=== PATIENT | male | born 1955 | race Caucasian/White ===

== ENCOUNTER 2017-06-18 08:57 | Emergency (ER) | payer BC, OTHER ==
[2017-06-18 09:06] VITALS: BP 141/70
--- NOTE | 2017-06-18 09:16 | ER Document Report ---
HPI - HPI Pain Level: 4 - DERM Skin Color: Normal, [place] Past Medical History - Social History Family History: Reviewed & Not Pertinent Patient has suicidal ideation: No Patient has homicidal ideation: No Renal/ Medical History: Reports: Hx Kidney Stones. Denies: Hx Peritoneal Dialysis Past Surgical History: Reports: Hx Orthopedic Surgery - pins in feet - Immunizations Hx Diphtheria, Pertussis, Tetanus Vaccination: Yes Vertical Provider Document - INFECTION CONTROL TRAVEL OUTSIDE OF THE [place] IN LAST 30 DAYS: No - RESPIRATORY O2 Sat by Pulse Oximetry: 98 Course - Vital Signs Vital signs: Temp Pulse Resp BP Pulse Ox 97.6 F 69 18 141/70 H 98 06/18/17 09:02 06/18/17 09:02 06/18/17 09:02 06/18/17 09:02 06/18/17 09:02
--- NOTE | 2017-06-18 09:43 | ER Document Report ---
ED Skin Rash/Insect Bite/Abscs - General Chief Complaint: Boil Stated Complaint: RASH Time Seen by Provider: 06/18/17 09:16 Mode of Arrival: Ambulatory Information source: Patient Notes: Patient is a 61-year-old male who presents to the ER today for cysts of her both of his armpits 1 week. Patient states he has no history of this. He denies any history of MRSA. He denies any drainage, fever, chills. He states that they do not hurt but they burn. He admits to rash under the right armpit with the cysts. He denies itching. TRAVEL OUTSIDE OF THE [place] IN LAST 30 DAYS: No - Related Data Allergies/Adverse Reactions: No Known Allergies Allergy (Verified 06/18/17 09:06) Past Medical History - General Information source: Patient - Social History Smoking Status: Never Smoker Family History: Reviewed & Not Pertinent Patient has suicidal ideation: No Patient has homicidal ideation: No Renal/ Medical History: Reports: Hx Kidney Stones. Denies: Hx Peritoneal Dialysis Past Surgical History: Reports: Hx Orthopedic Surgery - pins in feet - Immunizations Hx Diphtheria, Pertussis, Tetanus Vaccination: Yes Review of Systems - Review of Systems Constitutional: No symptoms reported EENT: No symptoms reported Cardiovascular: No symptoms reported Respiratory: No symptoms reported Gastrointestinal: No symptoms reported Genitourinary: No symptoms reported Male Genitourinary: No symptoms reported Musculoskeletal: No symptoms reported Skin: See HPI Hematologic/Lymphatic: No symptoms reported Neurological/Psychological: No symptoms reported Physical Exam - Vital signs Vitals: Temp Pulse Resp BP Pulse Ox 97.6 F 69 18 141/70 H 98 06/18/17 09:02 06/18/17 09:02 06/18/17 09:02 06/18/17 09:02 06/18/17 09:02 - Notes Notes: PHYSICAL EXAMINATION: GENERAL: Well-appearing and in no acute distress. HEAD: Atraumatic, normocephalic. EYES: Pupils equal round and reactive to light, extraocular movements intact, sclera anicteric, conjunctiva are normal. ENT: ear canals without erythema or foreign body, TMs pearly cali with good bony landmarks, nares patent, oropharynx clear without exudates. Moist mucous membranes. NECK: Normal range of motion, supple without lymphadenopathy LUNGS: CTAB and equal. No wheezes rales or rhonchi. HEART: Regular rate and rhythm without murmurs EXTREMITIES: Normal range of motion, no pitting edema. No cyanosis. NEUROLOGICAL: Cranial nerves grossly intact. Normal sensory/motor exams. PSYCH: Normal mood, normal affect. SKIN: Warm, Dry, normal turgor, three small areas of erythema with erythematous rash with central clearing to right axilla, one small area of erythema to left axilla without rash surrounding Course - Vital Signs Vital signs: Temp Pulse Resp BP Pulse Ox 97.6 F 69 18 141/70 H 98 06/18/17 09:02 06/18/17 09:02 06/18/17 09:02 06/18/17 09:02 06/18/17 09:02 Discharge - Discharge Clinical Impression: Rash and nonspecific skin eruption Condition: Stable Disposition: HOME, SELF-CARE Additional Instructions: Return immediately for any new or worsening symptoms. Follow up with primary care provider, call tomorrow to make followup appointment. Prescriptions: Clotrimazole/Betamethasone Dip [Clotrimazole-Betamethasone Crm] 45 gm TP BID #1 cream..g. Doxycycline Hyclate 100 mg PO BID #20 capsule Forms: Return to Work Referrals: ROSA M VINES PA-C [Primary Care Provider] - Follow up as needed
[2017-06-18] MEDS ORDERED: LIDOCAINE 2% JELLY 5 ML TUBE TOP ONE (09:45)
== END 2017-06-18 09:52 | disposition home or self-care (01) ==
LOC: ER 08:57
DX: R21 Rash and other nonspecific skin eruption (principal)
CPT/HCPCS: 99282

== ENCOUNTER 2017-12-20 06:03 | Emergency (ER) | payer OTHER, BC ==
--- NOTE | 2017-12-20 06:54 | ER Document Report ---
ED General - General Chief Complaint: Back Pain Stated Complaint: BACK PAIN Time Seen by Provider: 12/20/17 06:33 Mode of Arrival: Ambulatory Information source: Patient Notes: 62-year-old male with no reported past medical history presents with complaint of flank, back and abdominal pain. Patient states he is experienced intermittent flank and abdominal pain for 2 months with worsening of pain over the last few days. He describes it as a stabbing, throbbing, constant pain with radiation down both legs. Patient denies any fever, chills, chest pain, shortness of breath, nausea, vomiting, injury to his back. He states he has been able to eat and drink normally. His last bowel movement was yesterday. He denies any current medication use but does have a 20 year pack history. Patient denies any abdominal surgeries. He is not currently under care of a primary care physician. Patient states the pain becomes so severe that he cannot walk. Patient has a very physical job working construction. TRAVEL OUTSIDE OF THE [place] IN LAST 30 DAYS: No - HPI Onset: Other - 2 months prior to arrival Onset/Duration: Gradual, Persistent, Worse Quality of pain: Sharp, Stabbing, Throbbing Severity: Moderate Associated symptoms: denies: Chest pain, Nonproductive cough, Headache, Nausea, Vomiting Exacerbated by: Standing, Movement, Walking Relieved by: Denies Similar symptoms previously: No Recently seen / treated by doctor: No - Related Data Allergies/Adverse Reactions: No Known Allergies Allergy (Verified 06/18/17 09:06) Past Medical History - General Information source: Patient - Social History Smoking Status: Former Smoker - [id number] smoking history Cigarette use (# per day): No Chew tobacco use (# tins/day): No Smoking Education Provided: No Frequency of alcohol use: None Drug Abuse: None Lives with: Spouse/Significant other Family History: Reviewed & Not Pertinent Patient has suicidal ideation: No Patient has homicidal ideation: No - Medical History Medical History: Negative Renal/ Medical History: Reports: Hx Kidney Stones. Denies: Hx Peritoneal Dialysis Past Surgical History: Reports: Hx Orthopedic Surgery - pins in feet - Immunizations Hx Diphtheria, Pertussis, Tetanus Vaccination: Yes Review of Systems - Review of Systems Notes: Patient denies any fever, chills, chest pain, shortness of breath, nausea, vomiting, dysuria, hematuria, injury to his back. Constitutional: Weakness EENT: denies: Blurred vision Cardiovascular: denies: Chest pain, Palpitations Respiratory: denies: Short of breath Gastrointestinal: Abdominal pain. denies: Diarrhea, Nausea, Vomiting Genitourinary: Flank pain, Retention Musculoskeletal: Back pain Skin: No symptoms reported Hematologic/Lymphatic: No symptoms reported Neurological/Psychological: Weakness Physical Exam - Vital signs Vitals: Temp Pulse Resp BP Pulse Ox 97.9 F 66 20 130/82 H 97 12/20/17 06:08 12/20/17 06:08 12/20/17 06:08 12/20/17 06:08 12/20/17 06:08 Interpretation: Normal. No: Tachycardic, Febrile - General General appearance: Appears well, Alert In distress: Mild - HEENT Head: Normocephalic, Atraumatic Eyes: Normal Extraocular movements intact: Yes Pupils: PERRL Mucous membranes: Normal Pharynx: Normal Neck: No: Carotid bruit - Respiratory Respiratory status: No respiratory distress Chest status: Nontender Breath sounds: Normal, Decreased air movement. No: Wheezing Chest palpation: Normal - Cardiovascular Rhythm: Regular Heart sounds: Normal auscultation Murmur: No Pulses: Normal: Radial, Dorsalis pedis Normal capillary refill: Yes - Abdominal Inspection: Normal Distension: No distension Bowel sounds: Normal Tenderness: Tender. No: Guarding, Rebound - Diffuse tenderness Organomegaly: No organomegaly - Back Back: Normal, Nontender, CVA tenderness, Vertebra tenderness - Extremities General upper extremity: Normal inspection, Nontender, Normal color, Normal ROM , Normal temperature General lower extremity: Normal inspection, Nontender, Normal color, Normal ROM , Normal temperature, Normal weight bearing. No: Shlomo's sign - Neurological Neuro grossly intact: Yes Cognition: Normal Orientation: AAOx4 Flynn Coma Scale Eye Opening: Spontaneous [place] Coma Scale Verbal: Oriented [place] Coma Scale Motor: Obeys Commands Flynn Coma Scale Total: 15 Speech: Normal Motor strength normal: LUE, RUE, LLE, RLE Additional motor exam normals: Equal disease education specialist, Dorsiflexion. No: Weakness Babinski reflex: Normal (flexor plantar) Sensory: Normal Knee - Reflex grade: 2 = Normal Ankle - Reflex grade: 2 = Normal - Psychological Associated symptoms: Normal affect, Normal mood Course - Re-evaluation Re-evalutation: Laboratory 12/20/17 12/20/17 12/20/17 07:34 07:34 07:34 WBC 5.9 RBC 4.73 Hgb 14.2 Hct 42.0 MCV 89 MCH 30.0 MCHC 33.8 RDW 13.6 Plt Count 266 Seg Neutrophils % 61.4 Lymphocytes % 24.8 Monocytes % 7.4 Eosinophils % 5.8 Basophils % 0.6 Absolute Neutrophils 3.6 Absolute Lymphocytes 1.5 Absolute Monocytes 0.4 Absolute Eosinophils 0.3 Absolute Basophils 0.0 Sodium 139.2 Potassium 4.7 Chloride 105 Carbon Dioxide 25 Anion Gap 9 BUN 18 Creatinine 0.77 Est GFR ( Amer) > 60 Est GFR (Non-Af Amer) > 60 Glucose 101 Calcium 9.0 Total Bilirubin 0.3 Direct Bilirubin 0.2 Neonat Total Bilirubin Not Reportable Neonat Direct Bilirubin Not Reportable Neonat Indirect Bili Not Reportable AST 19 ALT 15 L Alkaline Phosphatase 47 Creatine Kinase 71 CK-MB (CK-2) 0.81 Troponin I < 0.012 Total Protein 6.3 Albumin 3.8 Lipase 94.2 Aorta w/Runoff CTA 12/20/17 06:45 IMPRESSION: NO ABDOMINAL AORTIC ANEURYSM, DISSECTION OR SIGNIFICANT STENOSIS IN THE AORTA, ILIAC ARTERIES, OR LOWER EXTREMITY VESSELS. NO SIGNIFICANT FINDINGS IN THE ABDOMEN, PELVIS, OR LOWER EXTREMITIES. Chest X-Ray 12/20/17 06:47 IMPRESSION: NO SIGNIFICANT RADIOGRAPHIC FINDING IN THE CHEST. 12/20/17 06:56 62-year-old male with no reported past medical history presents with complaint of flank, back and abdominal pain. Patient states she is experienced intermittent flank and abdominal pain for 2 months with worsening of pain over the last few days. He describes it as a constant pain with radiation down both legs. He describes it as stabbing, throbbing. Upon arrival vital signs stable. Exam is significant for bilateral CVA tenderness, diffuse mild abdominal tenderness without guarding or rebound. Patient is able to ambulate without difficulty. He is able to go up on his toes and up on his heels. He has a normal neurologic exam. Because of the patient's smoking history, complaint of flank and abdominal pain a CTA of the abdomen was obtained and was within normal limits. CBC is without leukocytosis or anemia, BMP is without electrolyte abnormalities patient has normal cardiac enzymes. Findings were discussed with the patient. 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 He was prescribed Mobic and Flexeril for home. 12/20/17 15:38 - Vital Signs Vital signs: Temp Pulse Resp BP Pulse Ox 97.3 F 56 L 20 132/79 H 100 12/20/17 10:56 12/20/17 10:56 12/20/17 06:08 12/20/17 10:56 12/20/17 10:56 - Laboratory Result Diagrams: 12/20/17 07:34 12/20/17 07:34 Laboratory results interpreted by me: 12/20/17 07:34 ALT 15 L Discharge - Discharge Clinical Impression: Back pain of lumbar region with sciatica Condition: Good Disposition: HOME, SELF-CARE Instructions: Ice Packs ([facility]), Low Back Pain ([facility]), Muscle Strain ([facility]), Oral Narcotic Medication ([facility]), Pain Medication Injection ([facility]), Warm Packs ([facility]) Additional Instructions: Your CAT scan today did not show any abnormalities. You do not have an aneurysm of your aorta. You do not have any blockage of your major arteries. You do not have any kidney stones or any other abnormalities in your abdomen and pelvis. Prescriptions: Cyclobenzaprine HCl [Flexeril 10 mg Tablet] 10 mg PO TIDP PRN #15 tab PRN Reason: Meloxicam [Mobic] 15 mg PO DAILY 21 Days #21 tablet Forms: Return to Work Referrals: PATRICIA CALVERT MD [Primary Care Provider] - Follow up as needed
[2017-12-20 07:56] LABS: ABSOLUTE EOSINOPHILS # (AUTO) 0.3 10^3/uL (0.0-0.6); ABSOLUTE LYMPHOCYTES (AUTO) 1.5 10^3/uL (0.5-4.7); ABSOLUTE MONOCYTES (AUTO) 0.4 10^3/uL (0.1-1.4); ABSOLUTE NEUT (AUTO) 3.6 10^3/uL (1.7-8.2); BASOPHILS % (AUTO) 0.6 % (0-2); EOSINOPHILS % (AUTO) 5.8 % (0-6); HEMOGLOBIN 14.2 g/dL (13.5-17.0); LYMPHOCYTES % (AUTO) 24.8 % (13-45); MEAN CORPUSCULAR HGB CONC 33.8 g/dL (32.0-36.0); MEAN CORPUSCULAR VOLUME 89 fl (80-97); MONOCYTES % (AUTO) 7.4 % (3-13); PLATELET COUNT 266 10^3/uL (150-450); RED BLOOD COUNT 4.73 10^6/uL (4.35-5.55); RED CELL DISTRIBUTION WIDTH 13.6 % (11.5-14.0); SEGMENTED NEUTROPHILS % (AUTO) 61.4 % (42-78); TOTAL CELLS COUNTED % (AUTO) 100 %; WHITE BLOOD COUNT 5.9 10^3/uL (4.0-10.5)
--- NOTE | 2017-12-20 08:15 | RADIOLOGY REPORT (SQ) ---
EXAM DESCRIPTION: CHEST PA/LAT COMPLETED DATE/TIME: 12/20/2017 7:47 am REASON FOR STUDY: pain COMPARISON: Chest film 08/14/2011 EXAM PARAMETERS: NUMBER OF VIEWS: two views TECHNIQUE: Digital Frontal and Lateral radiographic views of the chest acquired. RADIATION DOSE: NA LIMITATIONS: none FINDINGS: LUNGS AND PLEURA: No opacities, masses or pneumothorax. No pleural effusion. MEDIASTINUM AND HILAR STRUCTURES: No masses or contour abnormalities. HEART AND VASCULAR STRUCTURES: Heart normal size. No evidence for failure. BONES: No acute findings. HARDWARE: None in the chest. OTHER: No other significant finding. IMPRESSION: NO SIGNIFICANT RADIOGRAPHIC FINDING IN THE CHEST. TECHNICAL DOCUMENTATION: JOB ID: [id number] [employer]- All Rights Reserved Reading location - IP/workstation name: [email or web address]
[2017-12-20 08:23] LABS: CREATINE KINASE MB 0.81 ng/mL (<4.55)
[2017-12-20 08:24] LABS: TROPONIN I < 0.012 ng/mL
[2017-12-20 08:49] LABS: ALANINE AMINOTRANSFERASE 15 U/L (21-72); ALBUMIN 3.8 g/dL (3.5-5.0); ALKALINE PHOSPHATASE 47 U/L (38-126); ANION GAP 9 (5-19); ASPARTATE AMINO TRANSFERASE 19 U/L (17-59); BILIRUBIN,DIRECT 0.2 mg/dL (0.0-0.4); BILIRUBIN,TOTAL 0.3 mg/dL (0.2-1.3); BLOOD UREA NITROGEN 18 mg/dL (7-20); CARBON DIOXIDE 25 mmol/L (22-30); CHLORIDE 105 mmol/L (98-107); CREATINE KINASE 71 U/L (55-170); GLUCOSE 101 mg/dL (75-110); LIPASE 94.2 U/L (23-300); POTASSIUM 4.7 mmol/L (3.6-5.0); SODIUM 139.2 mmol/L (137-145); TOTAL PROTEIN 6.3 g/dL (6.3-8.2)
--- NOTE | 2017-12-20 09:40 | EKG REPORT ---
SEVERITY:- NORMAL ECG - SINUS RHYTHM : Confirmed by: Akbar Ely 20-Dec-2017 09:39:20
--- NOTE | 2017-12-20 10:10 | RADIOLOGY REPORT (SQ) ---
EXAM DESCRIPTION: CTA ABD AORTA AND EXTREMITY COMPLETED DATE/TIME: 12/20/2017 9:42 am REASON FOR STUDY: flank/leg and abdominal pain COMPARISON: CT abdomen pelvis 08/14/2011 TECHNIQUE: CT scan of the body and lower extremities performed with intravenous contrast using helic al scanning technique with dynamic intravenous contrast injection. Images reviewed with lung, soft ti ssue, and bone windows. Reconstructed coronal and sagittal MPR images reviewed. All images stored on PACS. Advanced 3D imaging as volume-rendering, MIPs, SSD performed? yes All CT scanners at this facility use dose modulation, iterative reconstruction, and/or weight based d osing when appropriate to reduce radiation dose to as low as reasonably achievable (ALARA). [facility]: Dose Right [facility]: CareDose [facility]: Dose Right [facility]: Teradose 4D [facility]: Make My plate CONTRAST TYPE AND DOSE: contrast/concentration: Isovue 370.00 mg/ml; Total Contrast Delivered: 100.0 ml; Total Saline Delivered: 94.0 ml RENAL FUNCTION: Creatinine 0.77 LIMITATIONS: None. FINDINGS: AORTA AND VESSELS: No aneurysm. No dissection. Renal arteries, SMA, celiac without stenosi s. LOWER RIGHT KIDNEY AND URETER: No mass, calculi or urinary tract obstruction. 2 cm cyst right lower pole kidney. LOWER LEFT KIDNEY AND URETER: No mass, or urinary tract obstruction. 1 cm stone left lower pole kid garry, [address] [place] units. RETROPERITONEUM: No retroperitoneal adenopathy, hemorrhage or masses. BOWEL AND PERITONEAL CAVITY: No masses or inflammatory changes. No free fluid or peritoneal masses. APPENDIX: Normal. ABDOMINAL WALL: No masses. No hernias. BONY STRUCTURES: No significant or acute findings. 3-D IMAGING: Confirms the above findings. OTHER: No other significant finding. LOWER EXTREMITIES: FEMORAL ARTERIES: No occlusions or significant stenoses. POPLITEAL ARTERIES: No aneurysm. No occlusions or significant stenoses. TIBIOPERONEAL TRUNK AND RUNOFF VESSELS: No occlusions or significant stenoses. OTHER: No other significant finding. IMPRESSION: NO ABDOMINAL AORTIC ANEURYSM, DISSECTION OR SIGNIFICANT STENOSIS IN THE AORTA, ILIAC ART ERIES, OR LOWER EXTREMITY VESSELS. NO SIGNIFICANT FINDINGS IN THE ABDOMEN, PELVIS, OR LOWER EXTREMITI ES. TECHNICAL DOCUMENTATION: JOB ID: [id number] Quality ID # [id number]: Final reports with documentation of one or more dose reduction techniques (e.g., Au tomated exposure control, adjustment of the mA and/or kV according to patient size, use of iterative reconstruction technique) 2010 [employer]- All Rights Reserved Reading location - IP/workstation name: [email or web address]
[2017-12-20] MEDS ORDERED: KETOROLAC TROMETHAMINE 60 MG/2 ML SDV IM ONE (10:41)
[2017-12-20 11:08] VITALS: BP 132/79
== END 2017-12-20 11:09 | disposition home or self-care (01) ==
LOC: ER 06:03
DX: M54.40 Lumbago with sciatica, unspecified side (principal); R53.1 Weakness; R33.9 Retention of urine, unspecified; R10.9 Unspecified abdominal pain; R10.817 Generalized abdominal tenderness; Z87.891 Personal history of nicotine dependence; Z87.442 Personal history of urinary calculi
CPT/HCPCS: 93005; 99284; 96372; 36415; 82553; 82550; 83690; 85025; 80053; 84484; 71046; 75635; 93010; J1885

== ENCOUNTER 2020-05-13 06:59 | Emergency (ER) | payer BC ==
--- NOTE | 2020-05-13 10:55 | ER Document Report ---
Entered by PIO WEI SCRIBE 05/13/20 1024 Acting as scribe for:JERROD GOODWIN MD ED General - General Chief Complaint: Pain All Over Stated Complaint: EXPOSED TO COVID POSITIVE PATIENT/COUGH/HEADAHCE Time Seen by Provider: 05/13/20 08:46 Information source: Patient Notes: This 64 year old male patient presents to the emergency department today with complaints of body aches. Patient states he lives at home with family and his daughter tested positive for coivd, with results given x3 days ago. Patient states his family members have been showing similar symptoms to his daughter. Patient reports history of smoking and is taking Tylenol for his body aches. Patient reports x1 episode of diarrhea and denies and headache, fever, or chills. TRAVEL OUTSIDE OF THE [place] IN LAST 30 DAYS: No - Related Data Allergies/Adverse Reactions: No Known Allergies Allergy (Verified 05/13/20 08:48) Past Medical History - General Information source: Patient - Social History Smoking Status: Former Smoker Chew tobacco use (# tins/day): No Frequency of alcohol use: None Drug Abuse: None Lives with: Family Family History: Reviewed & Not Pertinent Renal/ Medical History: Reports: Hx Kidney Stones Past Surgical History: Reports: Hx Orthopedic Surgery - pins in feet - Immunizations Hx Diphtheria, Pertussis, Tetanus Vaccination: Yes Review of Systems - Review of Systems Constitutional: See HPI, Other - Body aches. denies: Chills, Fever EENT: No symptoms reported Cardiovascular: No symptoms reported Respiratory: No symptoms reported Gastrointestinal: See HPI, Diarrhea - x1 Genitourinary: No symptoms reported Male Genitourinary: No symptoms reported Musculoskeletal: No symptoms reported Skin: No symptoms reported Hematologic/Lymphatic: No symptoms reported Neurological/Psychological: See HPI. denies: Headaches -: Yes All other systems reviewed and negative Physical Exam - Vital signs Vitals: Temp Pulse Resp BP Pulse Ox 97.8 F 67 18 144/79 H 100 05/13/20 08:35 05/13/20 08:35 05/13/20 08:35 05/13/20 08:35 05/13/20 08:35 - General General appearance: Alert, Other - Afebrile In distress: None - HEENT Head: Normocephalic, Atraumatic Eyes: Normal Pupils: PERRL Pharynx: No: Potential airway comprom. - Respiratory Notes: No signs of respiratory distress. No shortness of breath. Respiratory rate of 18. Oxygen saturation of 100% on room air. - Cardiovascular Rhythm: Regular Heart sounds: Normal auscultation - Abdominal Inspection: Normal Distension: No distension - Extremities General upper extremity: Normal inspection. No: Edema General lower extremity: Normal inspection. No: Edema - Neurological Neuro grossly intact: Yes Cognition: Normal Orientation: AAOx4 Speech: Normal - Psychological Associated symptoms: Normal affect, Normal mood - Skin Skin Temperature: Warm Skin Moisture: Dry Skin Color: Normal Skin irregularity: negative: Rash Course - Re-evaluation Re-evalutation: 05/13/20 10:53 Patient resting comfortably not showing any signs of distress. - Vital Signs Vital signs: Temp Pulse Resp BP Pulse Ox 97.8 F 67 18 144/79 H 100 05/13/20 08:35 05/13/20 08:35 05/13/20 08:35 05/13/20 08:35 05/13/20 08:35 05/13/20 10:53 Vital signs are stable no acute process - Laboratory Laboratory results interpreted by me: Only lab orders done as a COVID-19 which is a send out test those results will be back within the next several days. Patient instructed on this waiting time. Discharge - Discharge Clinical Impression: Suspected COVID-19 virus infection Condition: Stable Disposition: HOME, SELF-CARE Instructions: COVID-19 Guidance for Persons Under Investigation I personally performed the services described in the documentation, reviewed and edited the documentation which was dictated to the scribe in my presence, and it accurately records my words and actions.
[2020-05-13 11:08] VITALS: BP 144/87
== END 2020-05-13 11:09 | disposition home or self-care (01) ==
LOC: ER 06:59
DX: U07.1 COVID-19 (principal); R19.7 Diarrhea, unspecified; Z87.891 Personal history of nicotine dependence
CPT/HCPCS: 99283; 87635; C9803

== ENCOUNTER 2020-09-10 10:45 | Day surgery (SDC) | payer BC ==
[~2020-09-10 10:45] MED LIST: BUPIVACAINE HCL 0.75% INJ/PF (7.5 MG/1 ML) 10 ML SDV OS PRN; CHONDR SU A NA/HYALUR INTRAOC KIT (SURGICARE) ONE; EPINEPHRINE INJ/PF 1 MG/1 ML AMPULE ONE; KETOROLAC TROMETHAMINE 0.45% 4 DROP/0.4 ML DROPERETTE OS PRN; LIDOCAINE 1% INJ-PF (10 MG/ML) 30 ML SDV ONE; LIDOCAINE 4% INJ/PF (40 MG/ML) 5 ML AMPUL OS PRN; TRYPAN BLUE 0.06 % OPH SOLN 0.5 ML DISP.SYRIN ONE
[2020-09-10] MEDS: TETRACAINE HCL 0.5% OPH SOLN 4 ML OS PRN ×3 (11:26→12:11)
[2020-09-10] MEDS: CYCLOPENTOLATE 0.2%/PHENYLEPHRINE 1% OPH SOLN 2 ML OS PRN ×3 (11:26→11:46)
[2020-09-10] MEDS: BESIFLOXACIN HCL 0.6% OPH SUSP 5 ML BOTTLE OS PRN ×4 (11:26→12:38)
[2020-09-10] MEDS: TROPICAMIDE 1% OPH SOLN 15 ML OS PRN ×3 (11:26→11:46)
[2020-09-10] MEDS ORDERED: MIDAZOLAM 2 MG/2 ML INJ ONE (11:50)
[2020-09-10] MEDS: DORZOLAMIDE HCL 2%/TIMOLOL MALEAT 0.5% OPH SOLN 10 ML OS PRN ×2 (12:38)
[2020-09-10] MEDS: PREDNISOLONE ACETATE 1% OPH SUSP 5 ML OS PRN ×2 (12:38)
--- NOTE | 2020-09-10 13:50 | Operative Report ---
Operative Report-[facility] Operative Report: DATE OF SURGERY: 09/10/2020 PREOPERATIVE DIAGNOSIS: CATARACT, LEFT EYE. POSTOPERATIVE DIAGNOSIS: CATARACT, LEFT EYE. PROCEDURE PERFORMED: PHACOEMULSIFICATION WITH POSTERIOR CHAMBER INTRAOCULAR LENS, LEFT EYE. Intraocular Lens Model : MX 60 E 18.0 Total Phaco Time: 13.79 CDE SURGEON: YE CARLSON MD ANESTHESIA: TOPICAL WITH MAC. INDICATIONS FOR SURGERY: Difficultly driving at night, reading and watching TV PROCEDURE: The patient was brought to the Operating Room and placed on the operative table. Following tetracaine drops, topical anesthesia was administered. This consisted of instrument wipe pledgets soaked in a solution of 4% Xylocaine mixed with 0.75% Marcaine in a 1:2 ratio. A 2 x 1 cm pledget was placed in the superior fornix. A 1 x 1 cm pledget was placed in the inferior fornix. The eye was patched shut for 5 minutes. The patch was removed. The eye was sterilely prepped and draped in the usual manner. Lid speculum was placed in the eye. The pledgets were removed. 4-0 black silk sutures were placed around the superior and the inferior rectus muscles to be used as traction. A conjunctival peritomy was made at the 10 o'clock position. Hemostasis was obtained with bipolar cautery. A posterior limbal groove was created using a crescent knife and dissected anteriorly towards the cornea. A sharp point blade was used to create a paracentesis site at the 2 o'clock position. 0.2 cc non preserved Lidocaine was injected into the anterior chamber. A 2.4 mm keratome was used to enter the anterior chamber through the groove. Viscoelastic was injected into the anterior chamber. An anterior capsulotomy was performed using Utrata forceps in a capsulorrhexis fashion. Hydrodissection and hydrodelineation were performed. Phacoemulsification was performed in [id number] technique. Following this, the I/A unit was used to remove residual cortex. Viscoelastic was injected into the capsular bag. The Intraocular lens was placed in the capsular bag. The I/A unit was used to remove residual viscoelastic. The wound was seen to be watertight under high and low pressure, and no sutures were placed. The intraocular lens was well centered. The pressure was adjusted in the eye to normal pressure. The 4-0 black silk sutures and lid speculum were removed. The eye was shielded after Besivance,prednisolone, and Cosopt drops were placed. The patient tolerated the procedure well and was sent to the Recovery Room in good condition.
== END 2020-09-10 13:14 | disposition home or self-care (01) ==
LOC: SC 10:45
PROVIDERS: ATTEND Ophthalmology
DX: H25.89 Other age-related cataract (principal); H31.091 Other chorioretinal scars, right eye; H04.123 Dry eye syndrome of bilateral lacrimal glands; Z87.891 Personal history of nicotine dependence
CPT/HCPCS: 66984; 00142; V2632; J2250; J3490 ×5; J0171; 142

== ENCOUNTER 2020-10-01 08:23 | Day surgery (SDC) | payer BC ==
[~2020-10-01 08:23] MED LIST changes: +BUPIVACAINE HCL 0.75% INJ/PF (7.5 MG/1 ML) 10 ML SDV OD PRN; -BUPIVACAINE HCL 0.75% INJ/PF (7.5 MG/1 ML) 10 ML SDV OS PRN; +FENTANYL CITRATE INJ/PF 100 MCG/2 ML AMPUL ONE; +KETOROLAC TROMETHAMINE 0.45% 4 DROP/0.4 ML DROPERETTE OD PRN; -KETOROLAC TROMETHAMINE 0.45% 4 DROP/0.4 ML DROPERETTE OS PRN; +LIDOCAINE 4% INJ/PF (40 MG/ML) 5 ML AMPUL OD PRN; -LIDOCAINE 4% INJ/PF (40 MG/ML) 5 ML AMPUL OS PRN; +MIDAZOLAM 2 MG/2 ML INJ ONE; +ONDANSETRON HCL INJ/PF 4 MG/2 ML SDV ONE; -TRYPAN BLUE 0.06 % OPH SOLN 0.5 ML DISP.SYRIN ONE
[2020-10-01] MEDS: TROPICAMIDE 1% OPH SOLN 15 ML OD PRN ×3 (08:41→08:54)
[2020-10-01] MEDS: CYCLOPENTOLATE 0.2%/PHENYLEPHRINE 1% OPH SOLN 2 ML OD PRN ×3 (08:41→08:54)
[2020-10-01] MEDS: BESIFLOXACIN HCL 0.6% OPH SUSP 5 ML BOTTLE OD PRN ×4 (08:41→10:12)
[2020-10-01] MEDS: TETRACAINE HCL 0.5% OPH SOLN 4 ML OD PRN ×3 (08:41→09:48)
[2020-10-01] MEDS: PREDNISOLONE ACETATE 1% OPH SUSP 5 ML OD PRN ×2 (10:12)
[2020-10-01] MEDS: DORZOLAMIDE HCL 2%/TIMOLOL MALEAT 0.5% OPH SOLN 10 ML OD PRN ×2 (10:12)
--- NOTE | 2020-10-01 15:53 | Operative Report ---
Operative Report-[facility] Operative Report: DATE OF SURGERY: 10/01/2020 PREOPERATIVE DIAGNOSIS: CATARACT, RIGHT EYE. POSTOPERATIVE DIAGNOSIS: CATARACT, RIGHT EYE. PROCEDURE PERFORMED: PHACOEMULSIFICATION WITH POSTERIOR CHAMBER INTRAOCULAR LENS, RIGHT EYE. Intraocular Lens Model : MX60E 18.0 Total Phaco Time: 9.49 CDE SURGEON: YE CARLSON MD ANESTHESIA: TOPICAL WITH MAC. INDICATIONS FOR SURGERY: Difficulty driving. PROCEDURE: The patient was brought to the Operating Room and placed on the operative table. Following tetracaine drops, topical anesthesia was administered. This consisted of instrument wipe pledgets soaked in a solution of 4% Xylocaine mixed with 0.75% Marcaine in a 1:2 ratio. A 2 x 1 cm pledget was placed in the superior fornix. A 1 x 1 cm pledget was placed in the inferior fornix. The eye was patched shut for 5 minutes. The patch was removed. The eye was sterilely prepped and draped in the usual manner. Lid speculum was placed in the eye. The pledgets were removed. 4-0 black silk sutures were placed around the superior and the inferior rectus muscles to be used as traction. A conjunctival peritomy was made at the 10 o'clock position. Hemostasis was obtained with bipolar cautery. A posterior limbal groove was created using a crescent knife and dissected anteriorly towards the cornea. A sharp point blade was used to create a paracentesis site at the 2 o'clock position. 0.2 cc non preserved Lidocaine was injected into the anterior chamber. A 2.4 mm keratome was used to enter the anterior chamber through the groove. Viscoelastic was injected into the anterior chamber. An anterior capsulotomy was performed using Utrata forceps in a capsulorrhexis fashion. Hydrodissection and hydrodelineation were performed. Phacoemulsification was performed in [id number] technique. Following this, the I/A unit was used to remove residual cortex. Viscoelastic was injected into the capsular bag. The Intraocular lens was placed in the capsular bag. The I/A unit was used to remove residual viscoelastic. The wound was seen to be watertight under high and low pressure, and no sutures were placed. The intraocular lens was well centered. The pressure was adjusted in the eye to normal pressure. The 4-0 black silk sutures and lid speculum were removed. The eye was shielded after Besivance. prednisolone, and Cosopt drops were placed. The patient tolerated the procedure well and was sent to the Recovery Room in good condition.
== END 2020-10-01 10:47 ==
LOC: SC 08:23
PROVIDERS: ATTEND Ophthalmology
DX: H25.89 Other age-related cataract (principal); Z96.1 Presence of intraocular lens; Z87.891 Personal history of nicotine dependence
CPT/HCPCS: 66984; V2632; J2250; J3490 ×5; J0171; J2405; J3010